=== PATIENT | male | born 1980 | race Caucasian/White ===

== ENCOUNTER → 2016-09-13 | Outpatient (CLI) | payer OTHER ==
[~2016-09-13] VITALS: Ht 185.4 cm; Wt 184.6 kg
[2016-09-13 15:20] VITALS: BP 126/74; PULSE 80
[2016-09-13 15:49] VITALS: BP 126/74; PULSE 80
== END ==
LOC: LIGHT 14:45
DX: E88.81 Metabolic syndrome and other insulin resistance (principal); E66.01 Morbid (severe) obesity due to excess calories; Z68.43 Body mass index [BMI] 50.0-59.9, adult; I10 Essential (primary) hypertension

== ENCOUNTER → 2016-10-11 | Outpatient (CLI) | payer OTHER ==
[~2016-10-11] VITALS: Ht 185.4 cm; Wt 183.9 kg
[2016-10-11 16:01] VITALS: BP 154/82; PULSE 96
[2016-10-11 16:27] VITALS: BP 154/82; PULSE 96
== END ==
LOC: LIGHT 13:00
DX: E88.81 Metabolic syndrome and other insulin resistance (principal); R73.01 Impaired fasting glucose; I10 Essential (primary) hypertension; E66.01 Morbid (severe) obesity due to excess calories; Z68.43 Body mass index [BMI] 50.0-59.9, adult

== ENCOUNTER → 2016-11-05 | Outpatient (CLI) | payer OTHER ==
[~2016-11-05] VITALS: Ht 185.4 cm; Wt 184.8 kg
[2016-11-05 15:35] VITALS: BP 132/88; PULSE 60
== END ==
LOC: LIGHT 13:22
DX: E88.81 Metabolic syndrome and other insulin resistance (principal); E66.01 Morbid (severe) obesity due to excess calories; Z68.43 Body mass index [BMI] 50.0-59.9, adult; I10 Essential (primary) hypertension

== ENCOUNTER → 2016-11-29 | Outpatient (CLI) | payer OTHER ==
[~2016-11-29] VITALS: Ht 185.4 cm; Wt 189.4 kg
[2016-11-29 15:55] VITALS: BP 145/88; PULSE 81
== END ==
LOC: LIGHT 10:34
DX: E88.81 Metabolic syndrome and other insulin resistance (principal); I10 Essential (primary) hypertension; E66.01 Morbid (severe) obesity due to excess calories; Z68.43 Body mass index [BMI] 50.0-59.9, adult

== ENCOUNTER → 2016-12-10 | Outpatient (CLI) | payer OTHER | LOC: BHSO 08:46 | DX: Z01.89 Encounter for other specified special examinations (principal) ==

== ENCOUNTER → 2017-01-08 | Outpatient (CLI) | payer OTHER ==
[~2017-01-08] VITALS: Ht 185.4 cm; Wt 180.8 kg
[2017-01-08 16:16] VITALS: BP 130/92; PULSE 76
== END ==
LOC: LIGHT 14:22
DX: Z02.89 Encounter for other administrative examinations (principal)

== ENCOUNTER 2017-01-16 06:05 | Day surgery (SDC) | payer OTHER ==
[~2017-01-16] VITALS: Ht 185.4 cm; Wt 180.6 kg
[2017-01-16] VITALS (11 sets, daily range): BP systolic 124–168; BP diastolic 45–90; PULSE 70–88; TEMP 97.8–98.8
[2017-01-17 01:10] VITALS: BP 111/57; PULSE 91; TEMP 98.1
[2017-01-17 05:18] VITALS: BP 145/83; PULSE 83; TEMP 98.1
[2017-01-17 09:27] VITALS: BP 152/93; PULSE 83; TEMP 97.7
== END 2017-01-17 11:34 | disposition home or self-care (01) ==
LOC: SDCO 06:05 → SURG 10:50 → SDCO 01-17 11:34
DX: E66.01 Morbid (severe) obesity due to excess calories (principal); Z68.43 Body mass index [BMI] 50.0-59.9, adult; Z87.891 Personal history of nicotine dependence
CPT/HCPCS: OP; J0330; J0360; J1100; J1170; J1885; J2405; J2550; J2704; J2710; J2765; J7120; Q9968

== ENCOUNTER → 2017-01-28 | Outpatient (CLI) | payer OTHER ==
[~2017-01-28] VITALS: Ht 185.4 cm; Wt 169.2 kg
[2017-01-28 12:19] VITALS: BP 142/76; PULSE 76
== END ==
LOC: LIGHT 11:12
DX: Z02.89 Encounter for other administrative examinations (principal)

== ENCOUNTER → 2017-02-25 | Outpatient (CLI) | payer OTHER ==
[~2017-02-25] VITALS: Ht 185.4 cm; Wt 159.9 kg
[2017-02-25 16:44] VITALS: BP 126/74; PULSE 70
== END ==
LOC: LIGHT 09:01
DX: E88.81 Metabolic syndrome and other insulin resistance (principal); E66.01 Morbid (severe) obesity due to excess calories; Z68.42 Body mass index [BMI] 45.0-49.9, adult; Z71.3 Dietary counseling and surveillance; I10 Essential (primary) hypertension

== ENCOUNTER → 2017-04-08 | Outpatient (CLI) | payer OTHER ==
[~2017-04-08] VITALS: Ht 185.4 cm; Wt 150.1 kg
[2017-04-08 15:53] VITALS: BP 130/76; PULSE 60
== END ==
LOC: LIGHT 15:03
DX: E88.81 Metabolic syndrome and other insulin resistance (principal); E66.01 Morbid (severe) obesity due to excess calories; Z68.41 Body mass index [BMI] 40.0-44.9, adult; Z71.3 Dietary counseling and surveillance; I10 Essential (primary) hypertension

== ENCOUNTER → 2017-07-29 | Outpatient (CLI) | payer OTHER ==
[~2017-07-29] VITALS: Ht 185.4 cm; Wt 137.7 kg
[~2017-07-29] MED LIST: CALCIUM WITH D31 CTB PO; MULTI-FLAVOR CH1 CTB PO; NATURE'S BLE1000 MCG
[2017-07-29 15:24] VITALS: BP 122/76; PULSE 68
== END ==
LOC: LIGHT 08:59
DX: E88.81 Metabolic syndrome and other insulin resistance (principal); E66.01 Morbid (severe) obesity due to excess calories; Z68.41 Body mass index [BMI] 40.0-44.9, adult; Z71.3 Dietary counseling and surveillance; I10 Essential (primary) hypertension